=== PATIENT | female | born 1985 | race Two or more races ===

== ENCOUNTER 2017-05-24 23:41 | Emergency (ER) | payer MEDICAID, OTHER ==
[~2017-05-24] VITALS: Ht 160 cm; Wt 95.3 kg
[2017-05-24 23:45] VITALS: BP 118/83
[2017-05-25 00:44] LABS: Urine Bilirubin Negative (Negative); Urine Blood 3+ /uL (Negative); Urine Glucose Normal (Normal); Urine Ketone TRACE (Negative); Urine Mucus FEW (None Seen); Urine Nitrite Negative (Negative); Urine RBC 216 /hpf (0 - 4); Urine Squamous Epithelial Cell FEW /hpf (<5); Urine Urobilinogen Normal (Negative); Urine pH 5.5 (5.0-8.0)
[2017-05-25 00:53] LABS: Urine Color Red (Yellow)
== END 2017-05-25 05:29 | disposition left against medical advice (07) ==
LOC: EDBD 23:41 → ER 23:51
DX: R10.31 Right lower quadrant pain (principal); Z53.21 Procedure and treatment not carried out due to patient leaving prior to being seen by health care provider
CPT/HCPCS: 81001; 81025